=== PATIENT | female | born 1985 | race Two or more races ===

== ENCOUNTER 2023-02-28 14:30 | Emergency (ER) | payer OTHER ==
[~2023-02-28] VITALS: Ht 170.2 cm; Wt 143.4 kg
[2023-02-28 14:53] VITALS: BP 159/94
[2023-02-28] MEDS ORDERED: IBUPROFEN 600 MG TAB PO ONE (18:45)
[2023-02-28] MEDS ORDERED: IBUP600T28 PO (18:49)
[2023-02-28] MEDS ORDERED: CYCL-839 PO (18:49)
== END 2023-02-28 20:35 | disposition home or self-care (01) ==
LOC: ER 14:30
DX: S00.93XA Contusion of unspecified part of head, initial encounter (principal); V49.50XA Passenger injured in collision with unspecified motor vehicles in traffic accident, initial encounter; Y93.89 Activity, other specified; Y92.89 Other specified places as the place of occurrence of the external cause; Y99.8 Other external cause status
CPT/HCPCS: 70450